=== PATIENT | female | born 1980 | race Caucasian/White ===

== ENCOUNTER 2018-04-28 13:55 | Emergency (ER) | payer OTHER ==
[~2018-04-28] VITALS: Ht 175.3 cm; Wt 63.5 kg
[~2018-04-28 13:55] MED LIST: CHLO25; CHLO25 PO; LORA1 PO; MULTI-VITAMIN1 EACH PO; ONDA4ODT MM; PANT40 PO; ROXICODONE5 MG PO; THIA100 PO
[2018-04-28] MEDS ORDERED: Cyclobenzaprine5 MG PO (16:16)
[2018-04-28] MEDS ORDERED: LIDO700A20 TOP (16:16)
[2018-04-28] MEDS ORDERED: KETO10 PO (16:16)
== END 2018-04-28 16:23 | disposition home or self-care (01) ==
LOC: ER 13:55
DX: M54.42 Lumbago with sciatica, left side (principal); M54.41 Lumbago with sciatica, right side; Z88.0 Allergy status to penicillin; Z91.030 Bee allergy status; Z87.891 Personal history of nicotine dependence
CPT/HCPCS: 96372; 99282; J1885; J2920; J3360